=== PATIENT | female | born 1935 | race Caucasian/White ===

== ENCOUNTER → 2017-12-21 12:59 | Outpatient (CLI) | payer MEDICARE, OTHER, SELFPAY | PROVIDERS: Family Provider Family Medicine; PCP Family Medicine; Visit Provider Family Medicine | DX: M85.851 Other specified disorders of bone density and structure, right thigh (principal); Z78.0 Asymptomatic menopausal state; Z87.891 Personal history of nicotine dependence | CPT/HCPCS: 77080 ==

== ENCOUNTER → 2018-04-11 12:26 | Outpatient (CLI) | payer MEDICARE, OTHER, SELFPAY ==
--- NOTE | 2018-04-11 | DI.RAD.S_ITS ---
PROCEDURE: XR HIP W PEL IF DONE LT 2V INDICATIONS: HIP AND BACK PAIN TECHNIQUE: 2 views of the hip were acquired. COMPARISON: None. FINDINGS: Bones: No fractures or dislocations but there is moderately severe to severe hip joint osteoarthritis at the left hip, where a near copg-ih-melm articulation is present superiorly. No suspicious bony lesions. The visualized pelvic ring appears intact. Soft tissues: No suspicious soft tissue calcifications or masses. IMPRESSION: There is severe hip joint osteoarthritis on the left with near [id number] articulation superiorly. No recent trauma found. Dictated by: Luke Tomas M.D. on 04/11/2018 at 13:11 Approved by: Luke Tomas M.D. on 04/11/2018 at 13:12
--- NOTE | 2018-04-11 | DI.RAD.S_ITS ---
PROCEDURE: XR LUMBAR SPINE 2-3V INDICATIONS: HIP AND BACK PAIN TECHNIQUE: 3 views of the lumbar spine were acquired. COMPARISON: None. FINDINGS: Bones: 5 [id number] vertebrae are present. There is near normal bony alignment with slight dextroscoliosis centered at L2. No vertebral body compression fractures. No suspicious bony lesions. There is a moderate degree of L3-4 degenerative disc disease and facet osteoarthritis and at L45 and L5-S1 the degenerative changes are moderately severe. Slight anterolisthesis of L4 on L5 is associated, likely due to ligamentous laxity Soft tissues: Overlying bowel gas pattern is normal. No suspicious soft tissue calcifications. IMPRESSION: Overall there is moderately severe degenerative disc disease and facet osteoarthritis of the lower half of the LS spine and most pronounced at L4-5 and L5-S1 where significant spinal and foraminal stenosis would be expected. Ligamentous laxity allows anterolisthesis grade 1 of L4 on L5. Dictated by: Luke Tomas M.D. on 04/11/2018 at 13:12 Approved by: Luke Tomas M.D. on 04/11/2018 at 13:14
== END ==
PROVIDERS: PCP Family Medicine; Visit Provider Family Medicine
DX: M25.559 Pain in unspecified hip (principal); M54.9 Dorsalgia, unspecified; M51.37 Other intervertebral disc degeneration, lumbosacral region; M51.36 Other intervertebral disc degeneration, lumbar region; M47.817 Spondylosis without myelopathy or radiculopathy, lumbosacral region; M47.816 Spondylosis without myelopathy or radiculopathy, lumbar region; M43.16 Spondylolisthesis, lumbar region
CPT/HCPCS: 72100; 73502

== ENCOUNTER → 2018-04-27 11:58 | Outpatient (CLI) | payer MEDICARE, OTHER, SELFPAY ==
--- NOTE | 2018-04-27 | DI.MRI.S_ITS ---
PROCEDURE: MR LUMBAR SPINE WO CON INDICATIONS: LOW BACK PAIN/HIP PAIN/RADICULOPATHY TECHNIQUE: Noncontrast sagittal T1 spin echo and T2 fast echo, sagittal STIR, axial T1 and T2 fast spin echo through the lumbar spine. In cases with scoliosis, additional coronal T2 fast spin echo may be performed. COMPARISON: [facility], [place], XR LUMBAR SPINE 2-3V, 04/11/2018, 12:39. FINDINGS: Image quality: Excellent. Alignment and Curvature: There is grade 1 anterolisthesis of L4 on L5. Bone Marrow: A small intra-osseous hemangioma is noted in anterior L1. No acute vertebral body compression fractures. Spinal Cord: Conus medullaris terminates at the bowel one level. Visualized cord demonstrates normal signal and size. Paraspinous Soft Tissues: No paravertebral masses. A large simple appearing right renal cyst is noted measuring 4.3 x 5.1 cm. L1-L2: Preserved disc height. Mild disc desiccation. There is mild posterior disc bulge. Mild bilateral facet arthropathy and hypertrophy of ligamentum flavum. The central canal is patent. No foraminal stenosis. L2-L3: Mild loss of disc height and disc desiccation. There is circumferential disc bulge and posterior disc osteophyte complex. Mild bilateral facet arthropathy and hypertrophy of ligamentum flavum. The central canal is mildly narrowed. Mild bilateral foraminal stenosis. L3-L4: Preserved disc height. Mild disc desiccation. There is diffuse disc bulge and disc osteophyte complex. Mild bilateral facet arthropathy and moderate to severe hypertrophy of ligamentum flavum. The central canal is moderately narrowed. Mild bilateral foraminal stenosis. L4-L5: Mild loss of disc height and disc desiccation. There is diffuse disc bulge and disc osteophyte complex. A small annular tear is present posterior centrally. Severe bilateral facet arthropathy and hypertrophy of ligamentum flavum. The central canal is severely narrowed. Moderate bilateral foraminal stenosis. L5-S1: Mild loss of disc height and disc desiccation. There is diffuse disc bulge and disc protrusion. Severe bilateral facet arthropathy. The central canal is patent. Mild to moderate bilateral foraminal stenosis. There is a Tarlov cyst at level of S2-S3 measuring 1.6 cm. IMPRESSION: 1. Multilevel degenerative disc disease and facet arthropathy as described. 2. Central canal stenosis, severe at L4-L5, moderate at L3-L4, and mild at L2-L3. 3. Multilevel foraminal stenosis as described. 4. 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 5. A large right renal cyst. Dictated by: Carl Vazquez M.D. on 04/27/2018 at 13:15 Transcribed by: KISHAN on 04/27/2018 at 13:22 Approved by: Carl Vazquez M.D. on 04/27/2018 at 18:21
== END ==
PROVIDERS: Family Provider Family Medicine; PCP Family Medicine; Visit Provider Family Medicine
DX: M54.5 Low back pain (principal); M51.16 Intervertebral disc disorders with radiculopathy, lumbar region; M48.061 Spinal stenosis, lumbar region without neurogenic claudication; M51.17 Intervertebral disc disorders with radiculopathy, lumbosacral region; M48.07 Spinal stenosis, lumbosacral region; M71.38 Other bursal cyst, other site; N28.1 Cyst of kidney, acquired
CPT/HCPCS: 72148

== ENCOUNTER → 2019-09-11 15:01 | Outpatient (CLI) | payer MEDICARE, OTHER, SELFPAY ==
[2019-09-12 09:18] LABS: COVID19 Sendout Not Detected
== END ==
PROVIDERS: PCP Family Medicine; Visit Provider Registered Nurse
DX: Z01.812 Encounter for preprocedural laboratory examination (principal)
CPT/HCPCS: 87635

== ENCOUNTER 2019-09-15 15:05 | Observation (INO) | payer MEDICARE, OTHER, SELFPAY ==
[2019-09-05 15:16] VITALS: BMI 30.2
[2019-09-14] VITALS (15 sets, daily range): BP systolic 108–179; BP diastolic 55–70; PULSE 62–75; RESP 10–18; TEMP 35.9–37.2; O2SAT 87–100; BMI 30.2
--- NOTE | 2019-09-14 | DI.RAD.S_ITS ---
PROCEDURE: [id number] W PEL IF PERFORMED INDICATIONS: ANTERIOR LEFT HIP ARTHROPLASTY TECHNIQUE: AP pelvis with lateral view(s) of the left hip. COMPARISON: [facility], CR, XR HIP W PEL IF DONE LT 2V, 04/11/2018, 12:36. FINDINGS: Bones: Intraoperative evaluation during preparation for placement of final components of left total hip arthroplasty. The acetabular component is fixed by 2 visualize cancellous screws. A sizing device component for the femoral portion of the arthroplasty is not yet the permanent device. Soft tissues: The visualized bowel gas pattern is normal. No suspicious soft tissue calcifications. IMPRESSION: Normal alignment established in preparation for placement of final components of left total hip arthroplasty. Dictated by: Luke Tomas M.D. on 09/14/2019 at 15:04 Approved by: Luke Tomas M.D. on 09/14/2019 at 15:05
--- NOTE | 2019-09-14 06:00 | DI.RAD.S_ITS ---
PROCEDURE: XR PELVIS 1-2V INDICATIONS: post op film TECHNIQUE: 1 view of the lower pelvis acquired. COMPARISON: [facility], [place], XR HIP W PEL IF DONE LT 2V, 04/11/2018, 12:36. [facility] [place], [id number] W PEL IF PERFORMED, 09/14/2019, 14:59. FINDINGS: Bones: Patient is status post left hip arthroplasty, with hardware components in expected positions. The hip joint appears congruent. The visualized bony structures appear intact. Degenerative change is seen of the contralateral right hip. Age-appropriate lower lumbar spine degenerative changes are noted. Soft tissues: Overlying postoperative changes are noted. No suspicious soft tissue densities. IMPRESSION: Normal postoperative examination. Dictated by: Naresh Ramos M.D. on 09/14/2019 at 15:53 Approved by: Naresh Ramos M.D. on 09/14/2019 at 15:54
[2019-09-14] MEDS: LACTATED RINGERS 1,000 ML 42 ML IV ×2 (11:39→14:46)
[2019-09-14] MEDS: CELECOXIB 200 MG CAPSULE PO (11:41)
[2019-09-14] MEDS: ACETAMINOPHEN 325 MG TABLET 975 MG PO (11:41)
[2019-09-14] MEDS: PREGABALIN 75 MG CAPSULE PO (11:41)
--- NOTE | 2019-09-14 13:03 | PM.PREOP ---
Pre-operative Note COVID-19 COVID-19 status: Negative Result date/Date tested (Pos, Neg/Pending): 09/11/19 Interval Note History & Physical reviewed/Exam performed by Physician: Yes Changes to H&P: No H&P completed within 30 days and has changed as indicated here:: Plan for L anterior CED.
[2019-09-14] MEDS: CEFAZOLIN 2 GM/100 ML FROZ.PIGGY IV ×2 (13:39→22:37)
[2019-09-14] MEDS: TRANEXAMIC ACID 1,000 MG VIAL 1000 MG INJ ×2 (14:06→15:35)
--- NOTE | 2019-09-14 14:17 | SUR.OPER ---
Supine on padded [place] table with bilateral legs secured in padded positioning boots and suspended in positioning spars, operative leg in traction per surgeon. Head on one pillow. Arm on non-operative side secured on padded armboard <90 degrees abduction. Arm on operative side padded and resting across chest then secured with tape over sheet. Padded perineal post in place per surgeon.
[2019-09-14] MEDS: KETOROLAC 30 MG/ML VIAL IV (14:21)
[2019-09-14] MEDS: MORPHINE 4 MG/ML INJ INJ (14:22)
[2019-09-14] MEDS: ROPIVACAINE 0.5% PF 5 MG/ML 20ML VIAL 60 ML INJ (14:23)
--- NOTE | 2019-09-14 15:54 | P.OP_ITS ---
Operative Date/Time/Diagnoses Date of procedure: 09/14/19 Time of procedure: 15:54 Pre-op diagnosis: left hip OA Post-op diagnosis: same Procedure & Clinicians Procedure: Left anterior CED Same procedure as scheduled: Yes Indications: left hip OA Surgeon: Lamin Duncan Internet Security Specialist: Odette Garcia Anesthesia Type: General Operative Notes Findings: left hip OA Closure Type: primary Specimen(s): none sent Prosthetic devices, grafts, tissues, transplants, or devices: Glaser and Nephew R3 52 mm cup 52 x 36 mm polyethylene liner 2x 25 mm screws Glaser and Nephew anthology size 7 stem standard offset Biolox 36 mm +0 head Estimated Blood Loss (mL): 300 Blood products transfused: none Procedure in detail: Patient was met in the preoperative holding area where the site and side of surgery were marked by . Surgical consent had been signed in clinic but was reviewed again today in the preoperative holding area. All last minute questions were answered. Patient was then brought back in the operating room where she was induced under general anesthesia. She was then transferred onto the Bittinger table and Bittinger table boots were placed on her bilateral feet. The left hip was then prepped and draped in normal sterile fashion. A surgical time-out was performed verifying the site and side of surgery as well as the name of the patient. A 6 cm incision centered over the tensor muscle belly just distal to the hip crease and aiming towards the fibular head was made in the skin using 10. Blade. Electrocautery was used down to the level of the tensor fascia was which was then incised with a new 10. Blade. An Allis clamp was placed on the medial leaflet and the tensor muscle was retracted laterally. A Meyerding was then placed on the medial side retracting the rectus. The ascending circumflex vessels were then coagulated using electrocautery. An anterior retractor was then placed over the anterior wall and a Cobra placed over the superior neck and inferior neck inning us good visualization of the capsule. A T-shaped capsulotomy was performed. The inferior and superior leaflets were tagged with the FiberWire. Copious was then placed inside the capsule giving us good visualization of the femoral neck. We had about a 1 cm long femoral neck cut based on our preoperative templating. A reciprocal saw was used to make a appropriate neck cut. The corkscrew was then used to remove the femoral head. The soft tissue sleeve was then placed to protect the soft tissues. The anterior retractor was then replaced as well as a Cobra over the posterior wall to get good visualization of the cup. The labrum and pulled our were removed using electrocautery reaming began with a size 46 and we up sized by 2 until we got to a 50. The in began up sizing by 1- 51 which had good resistance and chatter. A 52 mm 3 hole R3 cup was then selected. This was then malleted into place under fluoroscopic guidance. Two dome screws were then placed 25 mm in length each. A 52 x 36 mm neutral liner was then placed and malleted flush with the cup rim. A stent was used to verify all tabs were down. We then turned our attention to the femoral side placing the femoral elevator hook underneath the femur. The leg was then lowered to the floor and abducted. A Garzon retractor was placed over the medial calcar and a bent Hohmann was placed outside the capsule at the corner of the greater troch. The capsule was then released off the femur and a large retractor was placed over the top the greater trochanter to give us access the femoral canal. The short external rotators were partially released. A canal finer was used followed by a curette followed by a chili pepper broach. Then began broaching by 1 starting with 1. Broach. Once we got to a size 7 broach this had good fit and fill as well as rotational stability. We calcar milled off the top of the broach and trialed a standard neck as well as a standard 36+ 0 head. The hip was then reduced and taken through range of motion which included maximal external rotation as well as external rotation lock to 110? extending the leg down to the floor. Both were found to be stable. The leg was then brought back and into neutral rotation fluoroscopy was used to measure leg length. We looked at a couple mm long. Hip was then reduced the broach was then removed I down sized to size 6 broach working to sink the broach deeper followed by size 7 broach was as able to countersink a couple mm. Selected a size 7 anthology stem this was then placed and malleted into place. A 36 mm +0 bio lock ceramic head was then placed on the trunnion and malleted into place. The hip was then reduced a final time. The wound was irrigated with Betadine which lock to soak for 5 minutes. The wound was then thoroughly irrigated with normal saline. An Ethibond was used in a running fashion to close the capsule the FiberWire to tag sutures were removed. Local anesthetic was infiltrated into the capsule as well as the tensor the tensor fascia was then closed with a running 0 Vicryl followed by 2 Vicryl in the skin followed by 3 0 strata fix in the subcuticular layer followed by Dermabond and Aquacel dressing. Complications: none Post-operative Condition: stable Disposition: PACU Plan for aftercare: WBAT LLE, 24 hours post-op abx, 6 weeks DVT prophylaxis
--- NOTE | 2019-09-14 17:16 | SUR.PHASEI ---
Patient taken up to room 221 with all belongings. Left in room with receiving RN at bedside.
[2019-09-14] MEDS: LACTATED RINGERS 1,000 ML 125 ML IV (18:00)
[2019-09-14] MEDS: ONDANSETRON 4 MG/2 ML INJ IV (18:58)
--- NOTE | 2019-09-14 19:35 | PC.NURSE ---
Pt arrived from PACU 1715, report received from RN, HARSHIL, wakes easily to voice - denies pain or discomfort. Dressing to L ant hip dry and intact. IV of LR at 125/hr started as ordered. Oriented to environment
[2019-09-14 20:48] LABS: Add Manual Diff / Slide Review NO; Basophils Absolute Auto 0 /uL (0-100); Basophils Percent Auto 0.1 % (0-2); Eosinophils Absolute Auto 0 /uL (0-450); Hematocrit 29.8 % (36-46); Hemoglobin 10.2 g/dL (12.0-16.0); Lymphocytes Absolute Auto 500 /uL (1100-4500); Mean Corpuscular HGB Conc 34.1 % (30-36); Mean Corpuscular Hemoglobin 29.7 PG (26-34); Mean Corpuscular Volume 86.9 fL (80-100); Monocytes Absolute Auto 700 /uL (0-900); Monocytes Percent Auto 5.7 % (3-14); Neutrophils Absolute Auto 11800 /uL (1500-7000); Neutrophils Percent Auto 90.2 % (50-75); Platelet Count 216 X10^3/uL (150-400); Red Blood Cell Count 3.43 X10^6/uL (4.0-5.2); Red Cell Distribution Width 14.4 % (11.6-14.8); White Blood Cell Count 13.1 X10^3/uL (4.5-11.0)
[2019-09-14] MEDS: ACETAMINOPHEN 325 MG TABLET 650 MG PO (21:26)
[2019-09-14] MEDS: ASPIRIN EC 81 MG TABLET PO (21:26)
[2019-09-14] MEDS: ATORVASTATIN 10 MG TABLET PO (21:27)
[2019-09-14] MEDS: METOPROLOL ER 25 MG TABLET PO (21:27)
[2019-09-14] MEDS: DOCUSATE 100 MG CAPSULE PO (21:27)
[2019-09-15 00:05] VITALS: BP 138/62; PULSE 61; RESP 18; TEMP 36.6; O2SAT 98
[2019-09-15] MEDS: LACTATED RINGERS 1,000 ML 125 ML IV (02:55)
[2019-09-15] MEDS: OXYCODONE IR 5 MG TABLET PO (03:46)
[2019-09-15 03:56] VITALS: BP 134/68; PULSE 68; RESP 18; TEMP 36.9; O2SAT 95
[2019-09-15 05:18] LABS: Hematocrit 25.9 % (36-46); Hemoglobin 8.8 g/dL (12.0-16.0)
[2019-09-15] MEDS: CEFAZOLIN 2 GM/100 ML FROZ.PIGGY IV (05:25)
--- NOTE | 2019-09-15 07:24 | PM.PN.1 ---
Subjective Subjective Date Patient Seen: 09/15/19 Time Patient Seen: 07:24 Interval history: Patient is POD#1 from left anterior CED. Doing well. Pain is well controlled. Has not yet worked with PT Exam Vital Signs (past 8 hours): - 09/15/19 00:05 09/15/19 03:56 Temperature 97.8 F 98.4 F Pulse Rate 61 68 Respiratory Rate 18 18 Blood Pressure 138/62 134/68 Pulse Oximetry 98 95 Oxygen Delivery Method Nasal Cannula Oxygen Flow Rate 0 Narrative Exam Narrative: NV intact in the LLE, dressing c/d/i Objective Labs Result Diagrams: 09/15/19 04:45 Labs: Laboratory Results - last 24 hr 09/14/19 09/15/19 20:40 04:45 WBC 13.1 H RBC 3.43 L Hgb 10.2 L 8.8 L Hct 29.8 L 25.9 L MCV 86.9 MCH 29.7 MCHC 34.1 RDW 14.4 Plt Count 216 Neut % (Auto) 90.2 H Lymph % (Auto) 4.0 L [place] % (Auto) 5.7 Eos % (Auto) 0.0 L Baso % (Auto) 0.1 Neut # (Auto) 86720 H Lymph # (Auto) 500 L [place] # (Auto) 700 Eos # (Auto) 0 Baso # (Auto) 0 Assessment & Plan Assessment & Plan narrative: Patient is a 84 yo F now POD#1 from left anterior CED. PAin is well controlled. SHe has not yet cleared PT. PLan for DC home today pending clearance. - WBAT LLE - No hip precautions - ASA 81mg BID for 6 weeks - narcotic Rx filled at pre-op appointment - DC home pending PT clearance Time Spent With Patient Time with patient: 15-24 minutes
[2019-09-15 07:40] VITALS: BP 115/54; PULSE 61; RESP 18; TEMP 36.7; O2SAT 96
[2019-09-15] MEDS: ACETAMINOPHEN 325 MG TABLET 650 MG PO ×2 (09:17→15:16)
[2019-09-15] MEDS: ASPIRIN EC 81 MG TABLET PO (09:17)
[2019-09-15] MEDS: DOCUSATE 100 MG CAPSULE PO (09:17)
[2019-09-15 09:19] VITALS: BP 115/54; PULSE 61
[2019-09-15] MEDS: LOSARTAN 50 MG TABLET 100 MG PO (09:19)
[2019-09-15] MEDS: SERTRALINE 25 MG TABLET PO (09:24)
--- NOTE | 2019-09-15 09:35 | PT.IIE ---
Current Diagnoses Unilateral primary osteoarthritis, left hip (09/14/19) Surgery Performed Operation Date: 09/14/19 13:15 Actual Procedures p Total Hip Arthroplasty/Anterior Approach(Left) - Lamin Duncan MD Surgical History (Last Reviewed 04/23/19 @ 14:47 by Erica Comer ENVELOPE SEALER) History of cholecystectomy (Acute) History of tubal ligation (Acute) Medical History (Last Updated 06/11/19 @ 13:19 by Deepa Hannon RN) Anxiety (Acute) Degenerative joint disease (DJD) of hip (Chronic) Easy bruisability (Acute) Herniated nucleus pulposus, L4-5 (Chronic) HLD (hyperlipidemia) (Acute) HTN (hypertension) (Acute) Macular degeneration of both eyes (Acute) Osteoarthritis (Acute) Pre-diabetes (Acute) Physical Therapy Inpatient Evaluation/Re-Eval M1 PT/OT-IP Prior Functional Status Start: 09/15/19 13:54 Freq: NEEDED Status: Active Protocol: Document 09/15/19 09:35 AB (Rec: 09/15/19 14:14 AB [id number]) Medical Review Prior Functional Status Medical History Reviewed No Communication able to make needs known but with slight confusion Mobility and Gait pt stated that she is modified independent with all mobilities. ambulated usually using a 4WW but uses a SPC at home when she is upstairs in her bedroom. Social History Household Members spouse Living Arrangements House Number of Floors (Floors) Two Floors Number of Stairs To Enter/Railing? 2 steps to enter with R rail pt plans to stay on the main level of the house at this time; bedroom is upstairs with 14 stairs L rail ascending but pt will stay in the guest room on the first level of the house Home Environment Standard Height Toilet,Walk in Shower Home Equipment Four Wheel Walker,Straight Cane,Raised Toilet Seat w/ Armrests M2 PT-IP Current Condition Start: 09/15/19 13:54 Freq: NEEDED Status: Active Protocol: Document 09/15/19 09:35 AB (Rec: 09/15/19 14:14 AB [id number]) Physical Therapy Current Condition Current Condition Evaluation Date 09/15/19 Treatment Diagnosis s/p L CED anterior approach; difficulty in walking Onset Date 09/14/19 Precautions Other Precautions per Dr. Duncan's note: No hip precautions Weight Bearing Status Weight Bearing Status Weight Bear as Tolerated Allowed Weight Bearing Amount (enter % LLE WBAT or #) (%) M3 PT-IP Subjective Start: 09/15/19 13:54 Freq: NEEDED Status: Active Protocol: Document 09/15/19 09:35 AB (Rec: 09/15/19 14:14 AB [id number]) Subjective Physical Therapy Visit Type Type Initial Evaluation Visit Start Time 09:35 Visit Stop Time 10:37 Total Visit Minutes 62 Number of CLINICAL STAFF PHARMACIST Visits 0 Physical Therapy Visit Comments Patient Comments agreeable to do PT Therapy Pain Assessment Pain When Pain Assessed At Rest Pain Present Pain Present Pain Reported Location Left Hip Intensity 2 Scale Used increased to 6/10 with mobility Pain Management Techniques Apply Cold,Modification of Treatment,Re-positioning, Timing of Activity with Medications M4 PT-IP Mobility and Gait Start: 09/15/19 13:54 Freq: NEEDED Status: Active Protocol: Document 09/15/19 09:35 AB (Rec: 09/15/19 14:14 AB [id number]) PT-Bed Mobility Assessment Rolling Level of Assist Maximal Assistance Supine to Sit Supine to Sit Maximum Assistance Sit to Supine Sit to Supine Maximum Assistance PT-Transfer Assessment Sit to and From Stand Sit to and from Stand Moderate Assistance,1 Person Assistance,Use of Upper Extremities Equipment Transfer Assistive Device Gait Belt,Front Wheeled Walker Orthotic/Prosthetic Devices or Brace: No Transfers Transfer Destination Chair,Toilet Transfer Technique amublated using FWW Transfer Ability Level of Assist Moderate Assistance,1 Person Assistance,Use of Upper Extremities Comments Mobility Comments completed supine <>sit max A. pt completed first getting out from R side (pt perfers this side) requiring max A and max cues. informed pt that it is easier to get in/out from the L side of the bed and completed again from the L side but pt still requires max A and max cues but was able to move LE to EOB better. pt requires SBA to CGA with sitting on EOB. pt completed sit to stand mod A and cues and ambulated towards the toilet using FWW mod A and cues. pt presents with usteady shuffling antalgic gait and requires cues for steadiness and safety. pt requires max A for moving around and step by step instructions for safety. completed sit to stand from the toilet using grab bar max A and max cues. pt ambulated to the chair mod to max A and cues. positioned pt on the chair. call light and table placed within reach. educated pt on safety and recommendation of FWW use at this time. Pt agreed. also informed pt regarding caregiver training and pt stated that her spouse will be able to assist her. informed case briefer regarding need for FWW for home use and that caregiver training is required at this time and will determine if pt will be safe to go home but currently will need SNF rehab. Gait Assessment Gait Gait Assistance Required: Moderate Assistance,Maximum Assistance Distance (Feet) 15 Able to Maintain Weight Bearing Status Yes During Gait Assistive Devices Assistive Device Gait Belt,Front Wheeled Walker Orthotic/Prosthetic Devices or Brace: No Gait Deviations General Gait Pattern Antalgic,Decreased Stride Length,Decreased Feet Clearance Factors Limiting Gait Function Factors Limiting Gait Function Decreased Activity Tolerance, Decreased Strength,Difficulty Following Directions,Limited Range of Motion,Pain,Poor Balance,Poor Safety Awareness Comments Gait Comments pls refer to mobility section for details pt with unsteady antalgic shuffling gait and with heavy UE use on FWW. PT-Balance Assessment Sitting Balance and Reactions Static Sitting Balance Ability Good Dynamic Sitting Balance Ability Good Standing Balance and Reactions Static Standing Balance Ability Fair Dynamic Standing Balance Ability Poor Device Used FWW M5 PT-IP Objective Assessments Start: 09/15/19 13:54 Freq: NEEDED Status: Active Protocol: Document 09/15/19 09:35 AB (Rec: 09/15/19 14:14 AB [id number]) Orientation Orientation/Cognition Level of Alertness Alert Orientation Name,Place,Situation Language Function Ability Hard of Hearing Safety Awareness Decreased Safety Awareness Memory Description Short Term Impaired Gross Range of Motion Lower Extremity ROM Assessment Within Functional Limits Strength Lower Extremity Strength Assessment Bilaterally Impaired Hip 3+/5 Knee 3+/5 Muscle Tone Muscle Tone WNL Yes M6 PT-IP Treatment Start: 09/15/19 13:54 Freq: NEEDED Status: Active Protocol: Document 09/15/19 09:35 AB (Rec: 09/15/19 14:14 AB [id number]) Physical Therapy Treatment Exercises Exercises Heel Slides Education Education Provided Precautions,Weight Bearing Status,Post-Op Packet,Safety M7 PT-IP Assessment and Plan Start: 09/15/19 13:54 Freq: NEEDED Status: Active Protocol: Document 09/15/19 09:35 AB (Rec: 09/15/19 14:14 AB [id number]) PT Summary Assessment and Plan Potential Rehabilitation Potential Good Status of Condition at Evaluation Evolving Summary Impairments Pain,ROM,Strength,Balance, Coordination,Sensation,Tone, Cognition,Bed Mobility, Transfers,Gait,Activity Tolerance Assessment Summary pt requiring mod to max A with mobility and has decrease safety awareness. requires step by step instructions on how to mobilize and transfers. d/c plan depending on progress but at this time will require SNF rehab. caregiver training will be conducted and if spouse will be able to assist pt, pt may go home and will benefit from homehealth PT but at this time, pt may need SNF rehab to improve strength and mobility independence. Pt also has 2 steps to enter the house and at this time is not appropriate to do stair climbing due to LE weakness and difficulty with elevating BLE even during ambulation. will continues to assess progress. Goals Bed Mobility Goal Standby Assistance Transfer Goal Standby Assistance,Front Wheeled Walker Gait Goal Standby Assistance,Front Wheel Walker Gait Distance 100 Other Goals up/down 2 steps R rail min A Days to Meet Goals 5 Frequency of Treatment Frequency Of Treatment Twice a Day Treatment Plan Physical Therapy Treatment Plan Bed Mobility Training,Transfer Training,Gait Training, Therapeutic Exercise,Balance Retraining,Post Op Education, Discharge Planning,Hot or Cold Pack,Neuromuscular Re-ed, Coordination Retraining,Manual Therapy Recommendations To Nursing Amount of Assist Needed 1 Person Assist Discharge Recommendations PT Discharge Recommendations SNF Rehab Transportation Needs at Discharge Wheelchair/Cabulance
[2019-09-15 12:00] VITALS: BP 112/54; PULSE 59; RESP 17; TEMP 36.8; O2SAT 94
--- NOTE | 2019-09-15 13:47 | CM.DPNOTE ---
DCP; Assisting ANTOINETTE Mayberry on patient's case. Patient has face to face signed by Dr. Duncan for P.T/ O.T. Patient has no preference of agencies. Originally called [facility], and they are book out until later in the week. Called Ekaterina at [facility], and she mentioned that they should be able to see patient by Tuesday. Discharge summary is not yet available, but faxed over orders, face to face, H&P. Ekaterina will work on getting in touch with intake department at [facility]. P: Patient is to go home with [facility] P.T/O.T. Brook Garcia RN/Verifier Operator
--- NOTE | 2019-09-15 14:29 | PC.NURSE ---
Dayshift Note: Pt initially checked on and assessed. Pt sitting upright in bed, alert and oriented, denies pain. Pt tolerating meal, on RA, denies SOB. Pain well controlled with tylenol only. Dressing is CDI, CMS intact to baseline in in LLE. Pt with early d/c orders pending PT clearance. Pt did not initially get PT clearance to d/c home. Re-evaluation this afternoon. Pt's uses a walker, and therefore is unable to help safely with transferring. Pt otherwise with VSS, voiding in bathroom, up with assist FWW. Will continue to monitor, notify MD with changes.
--- NOTE | 2019-09-15 14:58 | CM.IDA ---
Initial DCP Assessment Note: Pt is an 84 yo female, resident of [place], now POD#1 from Left knee surgery w/ Dr Duncan PCP: Dr Hart Payer: [facility] Reviewed chart, pt discussed in multidisciplinary rounds this morning, Ortho has placed a DC order pending PT clearance for home. AM physical therapy note suggests patient may require SNF vs HH. Met w/patient and her to introduce role and review DCP. Patient explains she hopes to return home today, spouse will be available to assist and their two dtrs live w/in 10 minutes of them. Suggested HH and patient agreeable to this, no agency preference. Requested RN DCP Cheryl assist w/this referral and she kindly agreed, Therapy has now cleared pt for return home w/family to assist and pt eager to return home this afternoon/evening. P: DC home w/family to assist, FWW, Signature PT/OT, by family vehicle ANTOINETTE Rm
--- NOTE | 2019-09-15 15:12 | PT.IPTN ---
Current Diagnoses Unilateral primary osteoarthritis, left hip (09/14/19) Surgery Performed Operation Date: 09/14/19 13:15 Actual Procedures p Total Hip Arthroplasty/Anterior Approach(Left) - Lamin Duncan MD Physical Therapy Treatment Note M2 PT-IP Current Condition Start: 09/15/19 13:54 Freq: NEEDED Status: Discharge Protocol: Document 09/15/19 09:35 AB (Rec: 09/15/19 14:14 AB [id number]) Physical Therapy Current Condition Current Condition Evaluation Date 09/15/19 Treatment Diagnosis s/p L CED anterior approach; difficulty in walking Onset Date 09/14/19 Precautions Other Precautions per Dr. Duncan's note: No hip precautions Weight Bearing Status Weight Bearing Status Weight Bear as Tolerated Allowed Weight Bearing Amount (enter % LLE WBAT or #) (%) M3 PT-IP Subjective Start: 09/15/19 13:54 Freq: NEEDED Status: Discharge Protocol: Document 09/15/19 14:06 KS (Rec: 09/15/19 16:25 KS [id number]) Subjective Physical Therapy Visit Type Type Treatment Note Visit Start Time 14:06 Visit Stop Time 15:12 Total Visit Minutes 66 Number of LION TAMER Visits 1 Physical Therapy Visit Comments Patient Comments Pt agreeable to do PT. Pts present for caregiver training. Therapy Pain Assessment Pain When Pain Assessed During Mobility Pain Present Pain Present Pain Reported Location Left Hip Scale Used no number given, described as slight twinge Pain Behaviors Wincing Pain Management Techniques Distraction M4 PT-IP Mobility and Gait Start: 09/15/19 13:54 Freq: NEEDED Status: Discharge Protocol: Document 09/15/19 14:06 KS (Rec: 09/15/19 16:25 KS [id number]) PT-Bed Mobility Assessment Supine to Sit Supine to Sit Contact Guard Assistance, Minimal Assistance,1 Person Assistance Sit to Supine Sit to Supine Contact Guard Assistance, Minimal Assistance,1 Person Assistance Scooting Scooting to Edge of Bed Standby Assistance PT-Transfer Assessment Sit to and From Stand Sit to and from Stand Contact Guard Assistance,1 Person Assistance,Use of Upper Extremities Equipment Transfer Assistive Device Gait Belt,Front Wheeled Walker Orthotic/Prosthetic Devices or Brace: No Transfers Transfer Destination Bed,Chair,Wheelchair,Bedside Commode Transfer Technique amublated using FWW Transfer Ability Level of Assist Contact Guard Assistance, Minimal Assistance,1 Person Assistance,Use of Upper Extremities Comments Mobility Comments Pt was in chair upon arrival from therapy w/ in room for caregiver training. Pt SBA for scooting to EOC. Instructed pts and he applied pts gait belt. provided Min A for pt sit<> stand. Pt then ambulated to [facility] CGA, stand<>sit CGA. Pt then sit<>stand CGA from BS and ambulated CGA w/ FWW to w/ c in hallway before being taken to stairs in w/c. Pt ascended/descended 3 steps x2 w/ CGA and cues for sequencing . Pt completed first set of stairs w/ LION TAMER and then safely provided CGA while pt ascended/descended second set of stairs w/ L hand rail and step to step pattern. Pts /caregiver was able to give pt CGA and correct cues for sequencing. Pt and then ambulated ~110 ft. before pt requested ride in w/ c remainder of distance to room. Pts provided cues during pt ambulation for upright posture. Pt is not safe to ambulate w/ SPC or 4WW currently because she relies on UE for support when ambulating. Will need Youth size FWW for appropriate fit for pts height (152.4 cm).Pt returned to room, pts provided CGA for sit<>stand and ambulation to bed, stand<> sit in bed and Min A for sit<> sup. Pts then provided Min A for pt sup<>sit for LE guidance out of bed. Demonstrated to pt and how to use gaitbelt for LE assistance into and out of bed . Pt then sit<>stand SBA w/ FWW and ambulated SBA to chair , SBA for stand<>sit in chair. Pt and state they both feel safe to return home today. Left in room w/ all needs in reach. Gait Assessment Gait Gait Assistance Required: Standby Assistance,Contact Guard Assist,1 Person Assist Distance (Feet) 130 Able to Maintain Weight Bearing Status Yes During Gait Assistive Devices Assistive Device Gait Belt,Front Wheeled Walker Orthotic/Prosthetic Devices or Brace: No Gait Deviations General Gait Pattern Antalgic,Decreased Stride Length,Decreased Feet Clearance Factors Limiting Gait Function Factors Limiting Gait Function Decreased Activity Tolerance, Decreased Strength,Difficulty Following Directions,Limited Range of Motion,Pain,Poor Balance,Poor Safety Awareness Comments Gait Comments Pt ambulated 130 ft w/ majority CGA provided by , KYM at end of treatment. Pts provided cues for upriht posture and FWW management. Stair Climbing Assessment Evaluation Level of Assist On Stairs Contact Guard Assistance,1 Person Assistance Devices Stair Climbing Assistive Devices Left Railing Technique/Endurance Stair Climbing Direction Ascend and Descend Stair Climbing Technique Step to Step Number of Steps Climbed 3 Stair Climbing Set # Repetitions (reps) 2 Comments Stair Climbing Comments Pt ascended/descended 3 steps x2, first with therapist providing CGA and cues and pts /caregiver providing cues on second set. Pt and successfully completed stairs and provided proper cues for sequencing. Pt and state they feel safe to complete steps at home . PT-Balance Assessment Sitting Balance and Reactions Static Sitting Balance Ability Good Dynamic Sitting Balance Ability Good Standing Balance and Reactions Static Standing Balance Ability Good Dynamic Standing Balance Ability Fair Device Used FWW M5 PT-IP Objective Assessments Start: 09/15/19 13:54 Freq: NEEDED Status: Discharge Protocol: Document 09/15/19 09:35 AB (Rec: 09/15/19 14:14 AB [id number]) Orientation Orientation/Cognition Level of Alertness Alert Orientation Name,Place,Situation Language Function Ability Hard of Hearing Safety Awareness Decreased Safety Awareness Memory Description Short Term Impaired Gross Range of Motion Lower Extremity ROM Assessment Within Functional Limits Strength Lower Extremity Strength Assessment Bilaterally Impaired Hip 3+/5 Knee 3+/5 Muscle Tone Muscle Tone WNL Yes M6 PT-IP Treatment Start: 09/15/19 13:54 Freq: NEEDED Status: Discharge Protocol: Document 09/15/19 14:06 KS (Rec: 09/15/19 16:25 KS [id number]) Physical Therapy Treatment Education Education Provided Precautions,Weight Bearing Status,Post-Op Packet,Safety Other Treatments Other Treatment Performed Unable to dispense youth FWW for pt home use, d/t restock issue. Pt will use standard FWW at home. Provided pt w/ phone number to schedule delivery of youth FWW to their home on Tuesday. Spoke w/ pt and pts /caregiver and they agree to use standard FWW until youth FWW can be delivered to home. Pt and agree to order youth FWW. M7 PT-IP Assessment and Plan Start: 09/15/19 13:54 Freq: NEEDED Status: Discharge Protocol: Document 09/15/19 14:06 RI (Rec: 09/15/19 16:25 KS [id number]) PT Summary Assessment and Plan Potential Rehabilitation Potential Good Status of Condition at Evaluation Evolving Summary Impairments Pain,ROM,Strength,Balance, Coordination,Sensation,Tone, Cognition,Bed Mobility, Transfers,Gait,Activity Tolerance Progress Towards Goals Progressing Toward Goals Assessment Summary Pt showed improvement w/ bed mobility, transfers, and ambulation this afternoon. Pt is CGA for most transfers and for ambulation and stairs. Conducted caregiver training w / pts who was able to safely provide cues and assist . Pt ambulated ~130 ft w/ FWW and provided CGA and correct cues when appropriate during ambulation and stairs. Pt Min A for LE guidance into and out of bed. Pt could benefit from additional caregiver and ambulation training tomorrow morning to assess safety and carryover, but pt and state they want to go home today. Unable to provide pt w/ youth FWW d/t restock issue, pt states will use standard FWW at home and pts will call [facility] for delivery of Youth FWW on Tuesday to their home in [place]. Pt is set up for HHPT. Goals Bed Mobility Goal Standby Assistance Transfer Goal Standby Assistance,Front Wheeled Walker Gait Goal Standby Assistance,Front Wheel Walker Gait Distance 100 Other Goals up/down 2 steps R rail min A Days to Meet Goals 5 Frequency of Treatment Frequency Of Treatment Twice a Day Treatment Plan Physical Therapy Treatment Plan Bed Mobility Training,Transfer Training,Gait Training, Therapeutic Exercise,Balance Retraining,Post Op Education, Discharge Planning,Hot or Cold Pack,Neuromuscular Re-ed, Coordination Retraining,Manual Therapy Recommendations To Nursing Amount of Assist Needed 1 Person Assist Discharge Recommendations PT Discharge Recommendations Home with 18/10 Assist,Home Health,SNF Rehab Transportation Needs at Discharge Wheelchair/Cabulance
--- NOTE | 2019-09-15 15:39 | PC.NURSE ---
Discharge Note: Pt given discharge teaching for anterior hip surgery. Pt cleared for discharge by PT after care-taproom attendant training was given. Pt denies pain, given scheduled tylenol with good pain relief. Dressing is CDI. CMS intact to baseline. Pt given discharge instructions on medication diet, s and s of stroke, follow-up, activity, precautions, s and s of infection, wound care and pain management. Pt and present for d/c teaching. Pt discharged to private vehicle via wheel-chair without incident.
--- NOTE | 2019-09-17 10:20 | CM.DPC ---
DCP cont: Faxed discharge summary to [facility] at fax # [phone]. Fax confirmation scanned in. Tika Ayoub, Care Direct Marketing Executive
== END 2019-09-15 15:44 | disposition home or self-care (01) ==
LOC: OR 09-17 11:15 → AC 09-17 11:15
PROVIDERS: Admitting Provider Orthopaedic Surgery Adult Reconstructive Orthopaedic Surgery; PCP Family Medicine; Referring Provider Orthopaedic Surgery Adult Reconstructive Orthopaedic Surgery; Visit Provider Orthopaedic Surgery Adult Reconstructive Orthopaedic Surgery
PROC: (CPT 27130; principal; 2019-09-14 13:15)
DX: M16.12 Unilateral primary osteoarthritis, left hip (principal); I10 Essential (primary) hypertension; R73.03 Prediabetes
CPT/HCPCS: 27130; 36415; 72170; 73503; 76000; 85014; 85018; 85025; 97116; 97162; 97530; C1776; G0378; J0690; J1170; J1885; J2270; J2405; J2704; J3010

== ENCOUNTER → 2022-01-13 12:55 | Outpatient (CLI) | payer MEDICARE, OTHER, SELFPAY ==
[2019-09-14 17:59] VITALS: BMI 30.2
--- NOTE | 2022-01-13 | DI.RAD.S_ITS ---
PROCEDURE: XR DEXA AXIAL SKELETON INDICATIONS: OSTEOPOROSIS SCREENING COMPARISON: [facility], CR, XR DEXA AXIAL SKELETON, 12/21/2017, 13:37. FINDINGS: This blank DEXA report has been sent in error by the PACS system. The correct and complete report will be forthcoming in 1-2 days. Thank you for your patience and understanding. Dictated by: Mohit Machado M.D. on 01/13/2022 at 15:02 Approved by: Mohit Machado M.D. on 01/13/2022 at 15:06
== END ==
PROVIDERS: PCP Family Medicine; Referring Provider Family Medicine; Visit Provider Family Medicine
DX: M85.851 Other specified disorders of bone density and structure, right thigh (principal); Z78.0 Asymptomatic menopausal state; Z87.311 Personal history of (healed) other pathological fracture
CPT/HCPCS: 77080; 77081

== ENCOUNTER → 2022-09-15 17:15 | Outpatient (CLI) | payer MEDICARE, OTHER, SELFPAY ==
[2019-09-14 17:59] VITALS: BMI 30.2
--- NOTE | 2022-09-15 | DI.MRI.S_ITS ---
PROCEDURE: MR BRAIN (IAC) WWO CON INDICATIONS: sensorineural hearing loss, bilateral TECHNIQUE: Noncontrast sagittal T1 spin echo, axial FLAIR, axial gradient echo, axial diffusion and ADC through the brain. Axial thin-slice 3D CISS, coronal TruFISP, axial T1 spin echo with fat saturation through the internal auditory canals. After the administration of contrast, thin slice axial and coronal T1 spin echo with fat saturation through the internal auditory canals, and axial and coronal and sagittal T1 spin echo with fat saturation through the brain. COMPARISON: None. FINDINGS: Image quality: Excellent. Cerebellopontine angles: No cerebellopontine angle masses. Inner ear structures appear normally formed. No suspicious enhancement in the internal auditory canal or along the course of the 7th cranial nerve. CSF spaces: Ventricles are normal in size and shape. No extra-axial fluid collections. Basal cisterns are patent. Brain: No intracranial bleeds or mass effects. Mild diffuse cerebral volume loss. Mild degree of patchy high FLAIR signal within the periventricular and subcortical white matter. Negrete-white matter interface is intact. No abnormal intracranial enhancement. Diffusion weighted images demonstrate no acute ischemic insults. Brainstem appears normal. Normal intravascular flow voids are present. Skull and face: Calvarial marrow signal is normal. Orbits appear normal. Sinuses: Sinuses and mastoids are clear. IMPRESSION: 1. Volume loss and small vessel ischemic disease. 2. No acute process. No recent infarct. Dictated by: Luis Angel Farris M.D. on 09/16/2022 at 8:52 Approved by: Luis Angel Farris M.D. on 09/16/2022 at 8:53
== END ==
PROVIDERS: PCP Family Medicine; Referring Provider Otolaryngology; Visit Provider Otolaryngology
DX: H90.3 Sensorineural hearing loss, bilateral (principal); H93.12 Tinnitus, left ear
CPT/HCPCS: 70553; A9579

== ENCOUNTER → 2022-11-15 07:26 | Outpatient (CLI) | payer MEDICARE, OTHER, SELFPAY ==
[2019-09-14 17:59] VITALS: BMI 30.2
[2022-11-15 08:38] LABS: Hemoglobin A1C% w Est Avg Glu 5.7 % (4.0-6.0)
[2022-11-15 09:12] LABS: Alanine Aminotransferase 16 IU/L (<35); Albumin 3.9 g/dL (3.5-5.0); Albumin Globulin Ratio 1.7 (1.0-2.8); Alkaline Phosphatase 71 U/L (38-126); Aspartate Aminotransferase 20 IU/L (14-36); BUN Creatinine Ratio 36.8 (6-22); Bilirubin Total 0.4 mg/dL (0.2-1.3); Blood Urea Nitrogen 28 mg/dL (7-17); Calcium 9.5 mg/dL (8.4-10.2); Carbon Dioxide 30 mmol/L (22-32); Chloride 102 mmol/L (98-107); Cholesterol 153 mg/dL (140-199); Estimated Glomerular Filt Rate > 60 mL/min (>60); Globulin 2.3 g/dL (1.7-4.1); Glucose 103 mg/dL (80-110); HDL Cholesterol 45 mg/dL (40-60); HEMOLYSIS < 15 (0-50); LDL Cholesterol Calculated 91 mg/dL (<100); Potassium 3.7 mmol/L (3.4-5.1); Sodium 139 mmol/L (137-145); Total Protein 6.2 g/dL (6.3-8.2); Triglycerides 83 mg/dL (35-150)
== END ==
PROVIDERS: PCP Family Medicine; Referring Provider Family Medicine; Visit Provider Family Medicine
DX: R73.01 Impaired fasting glucose (principal); E78.5 Hyperlipidemia, unspecified; I10 Essential (primary) hypertension
CPT/HCPCS: 36415; 80053; 80061; 83036

== ENCOUNTER → 2024-03-12 10:09 | Outpatient (CLI) | payer MEDICARE, OTHER, SELFPAY ==
[2019-09-14 17:59] VITALS: BMI 30.2
--- NOTE | 2024-03-12 10:11 | DI.RAD.S_ITS ---
PROCEDURE: XR DEXA AXIAL SKELETON INDICATIONS: OSTEOPENIA COMPARISON: [facility], CR, XR DEXA AXIAL SKELETON, 01/13/2022, 13:12. [facility], CR, XR DEXA AXIAL SKELETON, 12/21/2017, 13:37. FINDINGS: Lumbar Spine: Bone mineral density 1.102 g/cm2, T score 0.5, previously 0.2. Right Hip: Bone mineral density 0.746 g/cm2, T score -1.6, previously -1.9. Right Femoral Neck: Bone mineral density 0.701 g/cm2, T score -1.3, previously -1.2. Left Forearm: Bone mineral density 0.586 g/cm2, T score 0.1, previously 0.7 (please note these measurements represent the total forearm) Fracture Risk Calculation (when applicable): 10-year fracture risk of a major osteoporotic fracture 15 percent and of a hip fracture 3.8 percent. (T score greater or equal to -1.0 to: NORMAL) (T score from -1.1 to -2.4: OSTEOPENIA) (T score less than or equal to -2.5: OSTEOPOROSIS) IMPRESSION: 1. Normal bone density of the lumbar spine. 2. Osteopenia of the right hip and femoral neck. 3. Normal bone density of the left forearm. Follow-up guidelines as follows: Osteoporosis: Consider a repeat DEXA and Vertebral Fracture Assessment (VFA) exam in 2 years or sooner if medically necessary, to reassess this patient's status. Osteopenia: Consider a repeat DEXA in 2-3 years to reassess this patient's status, or if there is a new clinical indication. Normal: Consider a repeat DEXA in 5 years or sooner, or if there is a new clinical indication. All treatment decisions require clinical judgment and consideration of individual patient factors, including patient preferences, comorbidities, previous drug use, risk factors not captured in the FRAX model (e.g., frailty, falls, vitamin D deficiency, increased bone turnover, interval significant decline in bone density ) and possible under- or over-estimation of fracture risk by FRAX. In addition, the NOF Guide recommends that FDA-approved medical therapies be considered in postmenopausal women and men age >= 50 years with a: * Hip or vertebral (clinical or morphometric) fracture * T-score of <=-2.5 at the spine or hip * Ten-year fracture probability by FRAX of >= 3% for hip fracture or >=20% for major osteoporotic fracture. People with diagnosed cases of osteoporosis or at high risk for fracture should have regular bone mineral density tests. For patients eligible for Medicare, routine testing is allowed once every 2 years. The testing frequency can be increased to one year for patients who have rapidly progressing disease, those who are receiving or discontinuing medical therapy to restore bone mass, or have additional risk factors. Dictated by: Min Rosen M.D. on 03/12/2024 at 13:26 Approved by: Min Rosen M.D. on 03/12/2024 at 13:31
== END ==
PROVIDERS: PCP Family Medicine; Referring Provider Family Medicine; Visit Provider Family Medicine
DX: M85.89 Other specified disorders of bone density and structure, multiple sites (principal)
CPT/HCPCS: 77080; 77081